=== PATIENT | female | born 1995 | race African-American/Black ===

== ENCOUNTER 2017-01-11 14:24 | Emergency (ER) | payer OTHER ==
[~2017-01-11] VITALS: Ht 160 cm; Wt 51.3 kg
[~2017-01-11 14:24] MED LIST: COLACE100 MG PO; FLAGYL500 MG PO; HYDROCORTISONE30 G9 RECTAL; LEVAQUIN 500 M500 M2 PO; MOBIC15 MG PO; NOHOMEMEDICATIONS; NORCO 5-325 TA1 EACH PO; PHENERGAN 25 MG25 M1 PO; SENNALAX-S TAB1 EACH PO; ZOFRAN ODT4 MG PO
== END 2017-01-11 15:35 | disposition home or self-care (01) ==
LOC: ER 14:24
DX: M25.562 Pain in left knee (principal); Z98.890 Other specified postprocedural states; Z88.0 Allergy status to penicillin

== ENCOUNTER 2017-02-03 17:57 | Emergency (ER) | payer OTHER ==
[~2017-02-03] VITALS: Ht 160 cm; Wt 49.9 kg
[2017-02-03 19:42] LABS: URINE BILIRUBIN NEGATIVE (Negative); URINE BLOOD NEGATIVE (Negative); URINE COLOR YELLOW; URINE GLUCOSE-RANDOM* NEGATIVE (Negative); URINE KETONES NEGATIVE (Negative); URINE NITRITE NEGATIVE (Negative); URINE PROTEIN (DIPSTICK) NEGATIVE (Negative); URINE SPECIFIC GRAVITY 1.015 (1.003-1.035); URINE UROBILINOGEN 0.2 E.U./dl (0.2-1.0)
[2017-02-03 19:54] LABS: ABSOLUTE NEUTROPHILS 2.6 thou/uL (1.4-8.2); BASOPHILS 0.5 % (0.0-2.0); HEMATOCRIT 39.1 % (37.0-47.0); LYMPHOCYTES 41.7 % (24.0-44.0); MCH 29.5 pg (26.0-34.0); MCHC 33.2 g/dL (28.0-37.0); MCV 88.9 fL (80.0-100.0); MONOCYTES 8.5 % (1.0-8.0); PLATELET COUNT 272 thou/uL (150-400); POLYS 48.3 % (36.0-66.0); RDW 15.4 % (10.5-14.5); WBC 5.3 thou/uL (4.0-11.0)
[2017-02-03 20:12] LABS: MANUAL DIFF NO
[2017-02-03 20:13] LABS: CALCIUM 9.3 mg/dL (8.5-10.1); CREATININE 0.6 mg/dL (0.6-1.0); POTASSIUM 3.9 mmol/L (3.5-5.1)
[2017-02-03 20:18] LABS: ALBUMIN 4.2 g/dL (3.4-5.0); TOTAL BILIRUBIN 0.9 mg/dL (<0.1-1.0); TOTAL PROTEIN 8.3 g/dL (6.4-8.2)
[2017-02-03] MEDS ORDERED: PEPCID20 MG PO (21:10)
[2017-02-04 21:10] LABS: CHLAMYDIA TRACHOMATIS-PCR Negative (Negative); NEISSERIA GONORRHEA-PCR Negative (Negative)
== END 2017-02-03 22:10 | disposition home or self-care (01) ==
LOC: ER 17:57
PROVIDERS: Physician Assistant
DX: O26.891 Other specified pregnancy related conditions, first trimester (principal); R10.13 Epigastric pain; Z98.890 Other specified postprocedural states; Z3A.00 Weeks of gestation of pregnancy not specified; Z88.0 Allergy status to penicillin

== ENCOUNTER 2017-03-31 22:47 | Emergency (ER) | payer OTHER | END 2017-04-01 02:59 | disposition home or self-care (01) | LOC: ER 22:47 | DX: O26.891 Other specified pregnancy related conditions, first trimester (principal); O21.9 Vomiting of pregnancy, unspecified; Z3A.12 12 weeks gestation of pregnancy; Z98.890 Other specified postprocedural states; Z88.0 Allergy status to penicillin ==

== ENCOUNTER 2019-08-17 02:51 | Emergency (ER) | payer BC, OTHER ==
[~2019-08-17] VITALS: Ht 157.5 cm; Wt 49.9 kg
[~2019-08-17 02:51] MED LIST changes: +ACETAMINOPHEN-1 EAC1 PO; +PEPCID20 MG PO; +ZOFRAN ODT8 MG PO
[2019-08-17] MEDS ORDERED: NOHOMEMEDICATIONS (03:07)
[2019-08-17] MEDS ORDERED: MOBIC15 MG PO (05:29)
[2019-08-17 05:42] VITALS: BP 126/79
== END 2019-08-17 05:40 | disposition home or self-care (01) ==
LOC: ER 02:51
DX: S80.01XA Contusion of right knee, initial encounter (principal); Z90.49 Acquired absence of other specified parts of digestive tract; Z86.2 Personal history of diseases of the blood and blood-forming organs and certain disorders involving the immune mechanism; Z88.0 Allergy status to penicillin; X58.XXXA Exposure to other specified factors, initial encounter; Y93.89 Activity, other specified; Y92.89 Other specified places as the place of occurrence of the external cause; Y99.8 Other external cause status